=== PATIENT | male | born 1970 | race Caucasian/White ===

== ENCOUNTER 2022-05-21 20:11 | Emergency (ER) | payer MEDICAID ==
[~2022-05-21] VITALS: Ht 177.8 cm; Wt 79.0 kg
[2022-05-21 20:55] VITALS: BP 162/101
== END 2022-05-22 00:47 | disposition left against medical advice (07) ==
LOC: ER 20:11
DX: Z53.21 Procedure and treatment not carried out due to patient leaving prior to being seen by health care provider (principal)